=== PATIENT | male | born 1980 | race Caucasian/White ===

== ENCOUNTER 2025-04-30 17:11 | Emergency (ER) | payer OTHER, SELFPAY ==
[2025-04-30 17:13] VITALS: BP 148/129; PULSE 84; RESP 16; TEMP 36; O2SAT 100; BMI 23.8
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
--- NOTE | 2025-04-30 17:56 | EKG12_ITS ---
Test Reason : DIZZINESS Blood Pressure : */* mmHG Vent. Rate : 70 BPM Atrial Rate : 70 BPM P-R Int : 192 ms QRS Dur : 84 ms QT Int : 386 ms P-R-T Axes : 67 48 52 degrees QTcB Int : 416 ms Normal sinus rhythm with sinus arrhythmia Normal ECG Confirmed by CHRISTIANNE GAY, MEGAN ([id number]), news copy editor YURIDIA GARCIA ([id number]) on 05/02/2025 8:34:30 AM Referred By: KIKI Confirmed By: MEGAN FAUST MD
--- NOTE | 2025-04-30 18:26 | ED.RN ---
to start orders, pt states he feels great and doesnt want to stay for workup, dr in room to talk with pt
--- NOTE | 2025-04-30 18:52 | ED.RN ---
talked with dr au to leave ama
[2025-04-30 18:54] VITALS: O2SAT 99
== END 2025-04-30 18:54 | disposition left against medical advice (07) ==
LOC: ED 17:55
PROVIDERS: Emergency Provider Emergency Medicine; PCP Family Medicine; Visit Provider Emergency Medicine
DX: R06.09 Other forms of dyspnea (principal); R42 Dizziness and giddiness; R20.2 Paresthesia of skin; Z53.29 Procedure and treatment not carried out because of patient's decision for other reasons
CPT/HCPCS: 93005; 99282